=== PATIENT | female | born 1960 | race Caucasian/White ===

== ENCOUNTER 2016-10-30 10:03 | Inpatient (IN) | payer BC ==
[~2016-10-30] VITALS: Ht 154.9 cm; Wt 78.9 kg
[2016-10-30 11:29] LABS: BASOPHILS 0.3 % (0-2); EOSINOPHILS 0.8 % (0-7); HEMATOCRIT 32.7 % (36.0-48.0); HEMOGLOBIN 10.4 g/dL (12-16); IMMATURE GRANULOCYTES 0.4 % (0-5); LYMPHOCYTES 7.8 % (15-50); MCH 28.5 pg (26.0-34.0); MCHC 31.8 g/dL (31.0-37.0); MCV 89.6 fL (80.0-100.0); MEAN PLATELET VOLUME 10.8 fL (7.4-10.4); MONOCYTES 4.4 % (2-11); NEUTROPHILS 86.3 % (40-80); PLATELET COUNT 390 10x3/uL (130-400); RBC 3.65 10x6/uL (4.00-5.40); RDW 14.9 % (11.5-14.5); WBC 11.9 10x3/uL (4.8-10.8)
[2016-10-30 11:42] LABS: INR 1.14 (0.85-1.17); PROTIME 14.5 SECONDS (11.6-15.0)
[2016-10-30 11:51] LABS: ALBUMIN 1.9 g/dL (3.4-5.0); ANION GAP 13.4 mmol/L (8-16); BILIRUBIN - TOTAL 0.49 mg/dL (0.2-1.3); CALCIUM 9.3 mg/dL (8.5-10.1); CARBON DIOXIDE 25.2 mmol/L (21.0-32.0); POTASSIUM - SERUM 3.6 mmol/L (3.5-5.1); PROTEIN - SERUM 6.6 g/dL (6.4-8.2)
[2016-10-30] MEDS ORDERED: NEURONTIN800 MG PO (17:57)
[2016-10-30] MEDS ORDERED: NEURONTIN 300300 MG PO (17:58)
[2016-10-30] MEDS ORDERED: ISOSORBIDE MONO30 M1 PO (17:59)
[2016-10-30] MEDS ORDERED: ULTRAM50 MG PO (17:59)
[2016-10-30] MEDS ORDERED: CORDARONE200 MG PO (18:00)
[2016-10-30] MEDS ORDERED: COREG12.5 MG PO (18:01)
[2016-10-30] MEDS ORDERED: PREDNISONE5 MG PO (18:03)
[2016-10-30] MEDS ORDERED: ZOFRAN4 MG PO (18:05)
[2016-10-30] MEDS ORDERED: VITAMIN D250000 UNIT PO (18:05)
[2016-10-30] MEDS ORDERED: COMBIVENT RESPIM4 GM INH (18:05)
[2016-10-30 18:09] VITALS: BP 129/74; Ht 154.9 cm; Wt 78.9 kg
[2016-10-30 18:54] LABS: % SATURATION 10 % (15-55); IRON 21 ug/dl (35-150); TOTAL IRON BIND CAPACITY 191 ug/dl (260-445); UNSAT IRON BIND CAPACITY 170 ug/dl (150-375)
--- NOTE | 2016-10-30 19:10 | NUR ---
ALERT/AWAKE TALKING ON PHONE. HAS O2 ON AT 2L/NC. RR 20 EVEN U/L. TELEMETRY SHOWS 83 SR. RT ANKLE IN CAST. BSC AND CRUTCHES NEXT TO BED. REQUESTED BLANKET REMOVED FROM HER FEET. NO OTHER NEEDS VOICED.
[2016-10-30 20:00] VITALS: BP 155/84
--- NOTE | 2016-10-30 23:24 | NUR ---
RETURNED TO BED FROM BS. RT PRESENT TO GIVE UPDRAFT TX.
[2016-10-31 04:00] VITALS: BP 133/87
--- NOTE | 2016-10-31 05:00 | NUR ---
IV INFILTRATED. REMOVED AND TRIED SEVERAL TIMES TO RESITE NEW ONE. WILL SEE IF ANOTHER NURSE HAS TIME TO RESITE AN IV.
[2016-10-31 05:18] LABS: BASOPHILS 0 % (0-2); EOSINOPHILS 0 % (0-7); HEMATOCRIT 35.1 % (36.0-48.0); HEMOGLOBIN 11.2 g/dL (12-16); IMMATURE GRANULOCYTES 0.3 % (0-5); LYMPHOCYTES 5.6 % (15-50); MCH 28.6 pg (26.0-34.0); MCHC 31.9 g/dL (31.0-37.0); MCV 89.8 fL (80.0-100.0); MEAN PLATELET VOLUME 10.7 fL (7.4-10.4); NEUTROPHILS 93.1 % (40-80); PLATELET COUNT 376 10x3/uL (130-400); RBC 3.91 10x6/uL (4.00-5.40)
[2016-10-31 05:37] LABS: ALBUMIN 2.1 g/dL (3.4-5.0); BILIRUBIN - TOTAL 0.4 mg/dL (0.2-1.3); CALCIUM 9.4 mg/dL (8.5-10.1); CARBON DIOXIDE 26.1 mmol/L (21.0-32.0); CREATININE - SERUM 0.9 mg/dL (0.6-1.3); MAGNESIUM - SERUM 1.7 mg/dL (1.8-2.4); PHOSPHOROUS 4.3 mg/dL (2.5-4.9); PROTEIN - SERUM 6.4 g/dL (6.4-8.2)
--- NOTE | 2016-10-31 05:55 | NUR ---
ASSISTED TO BSC TO VOID AND BACK TO BED. ADMIN SCHED MED. NO OTHER NEEDS VOICED.
[2016-10-31 05:57] LABS: C-REACTIVE PROTEIN 30.3 mg/dL (0.0-0.9)
[2016-10-31 06:04] LABS: ANION GAP 15.2 mmol/L (8-16); POTASSIUM - SERUM 4.3 mmol/L (3.5-5.1)
--- NOTE | 2016-10-31 07:51 | NUR ---
AM ROUNDING- RECEIVED REPORT FROM DIPPER AND DRIER NURSE AURY. PT IS CURRENTLY SITTING UP IN BED RECEIVING A BREATHING TX. ON 02 AT 2L VIA NC. ON MONITOR SHOWING SR, 83 WITH PVC AND BBB. NO IV CURRENTLY PER AURY AFTER ATTEMPTING IV INSERTION X4 STICKS. WILL CALL AVELINA PORTER, VASCULAR ACCESS NURSE TO SEE ABOUT RESITED IV CATHETER. NO NEED AT CURRENT TIME. WILL CONTINUE TO MONITOR AND CONTINUE WITH PLAN OF CARE.
--- NOTE | 2016-10-31 09:13 | NUR ---
MRS. VALLE (FEED MILL SUPERVISOR) STATES SHE SITED PT WITH IV CATHETER X1 STICK WITH 22G IV CATHETER TO LEFT FOREARM.
[2016-10-31 10:02] VITALS: BP 158/61
[2016-10-31 14:42] VITALS: BP 137/67
[2016-10-31 17:48] VITALS: BP 147/76
--- NOTE | 2016-10-31 18:35 | NUR ---
PT IS CURRENTLY SITTING UP IN BED WITH EYES OPEN RESTING. PT DENIES ANY NEED AT CURRENT TIME. CALL LIGHT IS IN REACH. WILL CONTINUE TO MONITOR.
[2016-10-31 19:00] VITALS: BP 158/86
--- NOTE | 2016-10-31 20:00 | NUR ---
PT IN BED WITH HOB UP FOR COMFORT. WATCHING TV. ALERT & ORIENTED. RIGHT LEG IN CAST. 02 @ 2L VIA N/C. TELEMETRY. ELECTROLYTE PROTOCOL. UP ADLIB. NEEDS STOOL SPECIMEN COLLECTED. BED IN LOWEST POSITION AND CALL LIGHT WITHIN REACH.
--- NOTE | 2016-10-31 23:30 | NUR ---
RESTING QUIETLY. CL IN REACH.
--- NOTE | 2016-11-01 01:36 | NUR ---
CALL LIGHT IN REACH, WILL CONTINUE WITH PLAN OF CARE.
--- NOTE | 2016-11-01 02:55 | NUR ---
PT IN BED WITH HOB UP FOR COMFORT. EYES CLOSED. CHEST RISING AND FALLING. BED IN LOWEST POSITION AND CALL LIGHT WITHIN REACH.
--- NOTE | 2016-11-01 04:20 | NUR ---
PT IN BED WITH HOB UP FOR COMFORT. EYES CLOSED. RESP. EVEN. BED IN LOWEST POSITION AND CALL LIGHT WITHIN REACH.
[2016-11-01 06:12] LABS: BASOPHILS 0 % (0-2); EOSINOPHILS 0 % (0-7); HEMATOCRIT 33.1 % (36.0-48.0); HEMOGLOBIN 10.9 g/dL (12-16); IMMATURE GRANULOCYTES 0.4 % (0-5); LYMPHOCYTES 8.1 % (15-50); MCH 29.3 pg (26.0-34.0); MCHC 32.9 g/dL (31.0-37.0); MEAN PLATELET VOLUME 10.4 fL (7.4-10.4); NEUTROPHILS 89.5 % (40-80); PLATELET COUNT 386 10x3/uL (130-400); RBC 3.72 10x6/uL (4.00-5.40); RDW 15.1 % (11.5-14.5); WBC 11.7 10x3/uL (4.8-10.8)
[2016-11-01 06:24] VITALS: BP 128/86
[2016-11-01 06:24] LABS: ANION GAP 14.4 mmol/L (8-16); BILIRUBIN - TOTAL 0.3 mg/dL (0.2-1.3); CALCIUM 9.7 mg/dL (8.5-10.1); CARBON DIOXIDE 26.9 mmol/L (21.0-32.0); POTASSIUM - SERUM 4.3 mmol/L (3.5-5.1); PROTEIN - SERUM 6.9 g/dL (6.4-8.2)
--- NOTE | 2016-11-01 07:49 | NUR ---
AM ROUNDING- RECEIVED REPORT FROM DISPENSARY ATTENDANT NURSE LIONEL. PT IS CURRENTLY SITTING UP IN BED RECEIVED BREATHING TX. STATES SHE IS HAVING 4/10 THROAT PAIN. ON 02 AT 2L VIA NC. ON MONITOR SHOWING SR, HR 74. IV SEEN TO LEFT FOREARM WITH NS RUNNING AT 50CC. NO NEED AT CURRENT TIME. WILL CONTINUE TO MONITOR AND CONTINUE WITH PLAN OF CARE.
[2016-11-01 08:00] VITALS: BP 105/70
[2016-11-01 09:15] LABS: FOLATE (FOLIC ACID) - SERUM 11.9 ng/mL (>3.0)
[2016-11-01 16:00] VITALS: BP 148/89
--- NOTE | 2016-11-01 16:47 | NUR ---
CARMITA FLOWERS CAME TO INFORM ME THAT PTS IV IS INFILTRATED. MARY JONES REMOVED IV WITH CATH TIP INTACT. WILL ATTEMPT TO RESITE PT.
--- NOTE | 2016-11-01 18:45 | NUR ---
PT IS SITTING UP IN BED WITH EYES OPEN RESTING. BROUGHT PT CUP OF ICE WATER REQUESTED. NO OTHER NEED AT CURRENT TIME. WILL CONTINUE TO MONITOR.
[2016-11-01 19:00] VITALS: BP 167/82
[2016-11-02] VITALS: BP 170/106
--- NOTE | 2016-11-02 01:22 | NUR ---
REST QUIETLY IN BED, EYE CLOSE, BED LOW, CALL LIGHT WITHIN REACH.
[2016-11-02 04:00] VITALS: BP 171/94
[2016-11-02 06:14] LABS: BASOPHILS 0 % (0-2); EOSINOPHILS 0 % (0-7); HEMATOCRIT 33.7 % (36.0-48.0); IMMATURE GRANULOCYTES 0.5 % (0-5); LYMPHOCYTES 4.4 % (15-50); MCH 29.1 pg (26.0-34.0); MCHC 32.6 g/dL (31.0-37.0); MCV 89.2 fL (80.0-100.0); MEAN PLATELET VOLUME 10.6 fL (7.4-10.4); MONOCYTES 2.1 % (2-11); PLATELET COUNT 355 10x3/uL (130-400); RBC 3.78 10x6/uL (4.00-5.40); RDW 15.2 % (11.5-14.5)
[2016-11-02 06:24] LABS: WBC 15.3 10x3/uL (4.8-10.8)
[2016-11-02 06:45] LABS: ALBUMIN 2.1 g/dL (3.4-5.0); ANION GAP 15.9 mmol/L (8-16); BILIRUBIN - TOTAL 0.25 mg/dL (0.2-1.3); CALCIUM 9.4 mg/dL (8.5-10.1); CARBON DIOXIDE 24.7 mmol/L (21.0-32.0); CREATININE - SERUM 1.1 mg/dL (0.6-1.3); POTASSIUM - SERUM 4.6 mmol/L (3.5-5.1); PROTEIN - SERUM 6.2 g/dL (6.4-8.2)
--- NOTE | 2016-11-02 07:43 | NUR ---
AM ROUNDS - PT IS IN BED AND AWAKE. IV TO LEFT AC, NS AT 50CC/HR. O2 AT 2L VIA NC. MONITOR SHOWING SB, HR 57. PT HAS A NON PRODUCTIVE COUGH. BED AT LOWEST POSITION. CALL HERNANDEZ IN REACH/USE. SIDE RAILS UP X2. NO FUTHER NEEDS AT THIS TIME. WILL CONTINUE TO MONITOR.
[2016-11-02 08:00] VITALS: BP 160/81
[2016-11-02 12:00] VITALS: BP 146/78
--- NOTE | 2016-11-02 13:52 | NUR ---
Nutrition follow-up: Diet: low sodium PO intake ~75% average of meals Labs reviewed Wt: 168# RDN following.
[2016-11-02 16:00] VITALS: BP 156/94
--- NOTE | 2016-11-02 19:55 | NUR ---
ASSESSMENT COMPELTE, A&O. RESPERAIONS EVEN. CURRENTLY RECIEVING UPDRAFT. IV TO LEFT AC WITH NS INFUSING AT 50. SITE CLEAN AND DRY. RIGHT LEG IN CAST, CRUTHCES AT BED SIDE, WHEN ASKED PT STATED THAT SHE DOES NOT NEED ASSISTANCE WHEN GETTING UP, STATED THAT SHE HAS BEEN ON THE CRUTCHES SINCE MARCH. PT DENIES PAIN OR OTHER NEEDS, BED LOW, CL IN REACH.
[2016-11-02 20:00] VITALS: BP 177/103
[2016-11-03] VITALS: BP 167/95
[2016-11-03 04:00] VITALS: BP 152/87
--- NOTE | 2016-11-03 05:19 | NUR ---
IV TO LEFT AC OUT, TIP INTACT. IV RESITED BY Brice DIGGS RN TO RIGHT WRIST, 22 GUAGE, FIRST ATTEMPT. PT TOLERATED WELL. IV FLUIDS CONTINUED.
[2016-11-03 06:36] LABS: BASOPHILS 0 % (0-2); EOSINOPHILS 0 % (0-7); HEMATOCRIT 34.7 % (36.0-48.0); IMMATURE GRANULOCYTES 0.5 % (0-5); LYMPHOCYTES 4.3 % (15-50); MCH 28.6 pg (26.0-34.0); MCHC 31.7 g/dL (31.0-37.0); MCV 90.1 fL (80.0-100.0); MONOCYTES 2.1 % (2-11); NEUTROPHILS 93.1 % (40-80); PLATELET COUNT 361 10x3/uL (130-400); RBC 3.85 10x6/uL (4.00-5.40); RDW 15.5 % (11.5-14.5)
[2016-11-03] MEDS ORDERED: CATAPRES0.1 MG PO (06:40)
[2016-11-03 06:53] LABS: ALBUMIN 2.2 g/dL (3.4-5.0); BILIRUBIN - TOTAL 0.29 mg/dL (0.2-1.3); CALCIUM 9.6 mg/dL (8.5-10.1); CREATININE - SERUM 1.1 mg/dL (0.6-1.3); PROTEIN - SERUM 6.7 g/dL (6.4-8.2)
[2016-11-03 08:22] VITALS: BP 176/96
--- NOTE | 2016-11-03 08:30 | NUR ---
INTRODUCED MYSELF TO PT PRIMARY RN FOR TODAYS SHIFT. PT A&O SITTING UP IN BED RESTING QUIETLY. SHIFT ASSESSMENT COMPLETED. PT IS HOPING TO BE DISCHARGED OVER THIS WEEKEND AND STATES SHE IS FEELING MUCH BETTER. PROVIDED PT WITH MORNING MEDICATIONS AND PT SWALLOWED WITHOUT ANY DIFFICULTIES. INITIATED IVPB ANBX INFUSING VIA R.HAND PIV WITH DRSG CDI AND SWAB CAPS IN USE. PT HAS A CAST ON HER R.LEG PRIOR TO ADMISSION BUT NO ISSUES NOTED WITH CAST OR SITE. PT REFUSES SCDS AND AMBULATES WITH CRUTCHES WITHOUT ASSISTANCE. PT DENIES ANY CURRENT PAIN OR NEEDS. CL IN REACH, BED IN LOWEST, SIDE RAILS X2. WILL CPOC.
[2016-11-03 16:40] VITALS: BP 171/93
[2016-11-03 19:00] VITALS: BP 149/71
--- NOTE | 2016-11-03 19:16 | NUR ---
PT STATES SHE HAD A GOOD DAY OVERALL AND DENIES ANY CURRENT PAIN OR NEEDS. PT HOPES TO BE DISCHARGED TOMORROW OR SATURDAY. RR NONLABORED WITH NC @2L, TAPERED PT DOWN TO 1L AND PTS SAT IS 97% PT STATES SHE WOULD LIKE TO REST AND DENIES ANY CURRENT NEEDS. CL IN REACH, BED IN LOWEST, SIDE RAILS X2. WILL CPOC.
--- NOTE | 2016-11-03 19:34 | NUR ---
INITIAL ROUNDS COMPETED. PT RESTING WITH EYES CLOSED. RESP EVEN AND REGULAR. SR UP X2, CALL LIGHT WITHIN REACH.
--- NOTE | 2016-11-04 00:51 | NUR ---
PT RESTING WITH EYES CLOSED. RESP EVEN AND REGULAR. SR UP X2, CALL LIGHT WITHIN REACH.
[2016-11-04 02:18] VITALS: BP 139/91
--- NOTE | 2016-11-04 02:41 | NUR ---
PT RESTING WITH EYES CLOSED. RESP EVEN AND REGULAR. SB PER CM HR 53. WILL CONTINUE TO MONITOR. SR UP X2, CALL LIGHT WITHIN REACH.
[2016-11-04 05:00] VITALS: BP 181/94
[2016-11-04 05:10] LABS: BASOPHILS 0 % (0-2); EOSINOPHILS 0 % (0-7); HEMOGLOBIN 10.7 g/dL (12-16); IMMATURE GRANULOCYTES 0.3 % (0-5); LYMPHOCYTES 3.9 % (15-50); MCH 28.2 pg (26.0-34.0); MCHC 31.5 g/dL (31.0-37.0); MCV 89.7 fL (80.0-100.0); MEAN PLATELET VOLUME 10.5 fL (7.4-10.4); MONOCYTES 2.3 % (2-11); NEUTROPHILS 93.5 % (40-80); PLATELET COUNT 300 10x3/uL (130-400); RBC 3.79 10x6/uL (4.00-5.40); RDW 15.1 % (11.5-14.5); WBC 10.7 10x3/uL (4.8-10.8)
[2016-11-04 05:30] LABS: ALBUMIN 2.2 g/dL (3.4-5.0); BILIRUBIN - TOTAL 0.32 mg/dL (0.2-1.3); CALCIUM 9.6 mg/dL (8.5-10.1); CARBON DIOXIDE 28.5 mmol/L (21.0-32.0); CREATININE - SERUM 1.1 mg/dL (0.6-1.3); MAGNESIUM - SERUM 2.4 mg/dL (1.8-2.4); PHOSPHOROUS 3.5 mg/dL (2.5-4.9); POTASSIUM - SERUM 4.5 mmol/L (3.5-5.1); PROTEIN - SERUM 6.2 g/dL (6.4-8.2)
--- NOTE | 2016-11-04 06:49 | NUR ---
VSS THROUGHOUT NIGHT. SB PER CM HR IN 50'S. NEEDS MET; WILL CONTINUE TO MONITOR.
--- NOTE | 2016-11-04 08:02 | NUR ---
ASSESSMENT DONE. DENIES NEEDS
[2016-11-04 08:16] VITALS: BP 171/91
--- NOTE | 2016-11-04 09:27 | NUR ---
REPOSITIONED IN BED FOR COMFORT. CALL LIGHT IN REACH. WILL CONT. PLAN OF CARE.
[2016-11-04 11:59] VITALS: BP 142/73
[2016-11-04 16:05] VITALS: BP 152/80
--- NOTE | 2016-11-04 16:59 | NUR ---
WITHOUT CHANGES OR DISTRESS NOTED AT THIS TIME. DENIES NEEDS,.
[2016-11-04 19:00] VITALS: BP 114/63
--- NOTE | 2016-11-04 20:30 | NUR ---
INITIAL ROUNDS COMPELTED AT 1910 HRS. PT DENIED ANY DISCOMFORT. ASSESSMENT COMPETED AT 1930 HRS. VSS. SB PER CM HR 57. IV TO R WRIST WITH NS AT 50CC/HR. IV PATENT. LUNGS DIMINISHED IN L LOWER LOBES, SCATTERED CRACKLES AND RHONCHI R LOWER LOBE. R LOWER LEG IN CAST. R FOOT WARM WITH STRONG PEDAL PULSE. BRISK CAP REFILL. O2 1LNC. WILL CONTINUE TO MONITOR. SR UP X2 CALL LIGHT WITHIN REACH.
--- NOTE | 2016-11-04 22:00 | NUR ---
PM MEDS GIVEN. PT CURRENTLY WATCHING TV. WILL CONTINUE TO MONITOR.
--- NOTE | 2016-11-05 00:22 | NUR ---
PT AWAKE; DENIES ANY DISCOMFORT. O2 SAT 97% ON 1LNC. WILL CONTINUE TO MONITOR.
[2016-11-05 04:00] VITALS: BP 172/97
--- NOTE | 2016-11-05 04:32 | NUR ---
IV SALINE LOCKED. PT RESTING WITH EYES CLOSED. RESP EVEN AND REGULAR. SR UP X2, CALL LIGHT WITHIN REACH.
--- NOTE | 2016-11-05 06:21 | NUR ---
VSS THROUGHOUT NIGHT. SR/AB PER CM. PT STATED ULTRAM HELPED FOOT PAIN. NEEDS MET;WILL CONTINUE TO MONITOR.
[2016-11-05 08:00] VITALS: BP 131/86
--- NOTE | 2016-11-05 08:02 | NUR ---
ASSESSMENT COMPLETED. TELEMERTY SHOWS SB WITH A HEART RATE OF 54. RIGHT WRIST SL. LEFT LUNG DIMISHED AND RIGHT LUNG WITH CRACKLES. PT HAS A RIGHT ANKLE CAST. DENIES ANY NEEDS AT PRESENT TIME.
--- NOTE | 2016-11-05 10:45 | NUR ---
RESTING QUIETLY NAD NOTED
[2016-11-05 12:00] VITALS: BP 151/72
--- NOTE | 2016-11-05 12:54 | NUR ---
UP TO BATHROOM PER SELF. DENIES ANY NEEDS. SR UP WITH CALL LIGHT IN REACH
[2016-11-05 16:43] VITALS: BP 140/64
[2016-11-05 19:36] VITALS: BP 136/69
--- NOTE | 2016-11-05 20:34 | NUR ---
RESTING WITH NO DISTRESS. SEE SHIFT ASSESSMENT. CPOC.
--- NOTE | 2016-11-05 22:35 | NUR ---
HS MEDS GIVEN. PT AWAKE/ALERT AND VOICING NO NEEDS. IVPB ABT STARTED.
[2016-11-06] VITALS (7 sets, daily range): BP systolic 69–175; BP diastolic 69–95
[2016-11-06 06:58] LABS: BASOPHILS 0 % (0-2); EOSINOPHILS 0 % (0-7); HEMATOCRIT 35.9 % (36.0-48.0); HEMOGLOBIN 11.4 g/dL (12-16); IMMATURE GRANULOCYTES 0.2 % (0-5); LYMPHOCYTES 2.7 % (15-50); MCH 28.2 pg (26.0-34.0); MCHC 31.8 g/dL (31.0-37.0); MCV 88.9 fL (80.0-100.0); MEAN PLATELET VOLUME 11.1 fL (7.4-10.4); MONOCYTES 3.1 % (2-11); PLATELET COUNT 325 10x3/uL (130-400); RBC 4.04 10x6/uL (4.00-5.40); RDW 15.5 % (11.5-14.5); WBC 12.5 10x3/uL (4.8-10.8)
--- NOTE | 2016-11-06 07:10 | NUR ---
RECEIVED REPORT. ASSUMED CARE OF PATIENT. PATIENT SITTING IN BED. RESP EVEN AND UNLABORED. DENIES NEEDS AT THIS TIME. CALL LIGHT WITHIN REACH. NO DISTRESS. CAST TO RIGHT LEG. DENIES NUMBNESS OR TINGLING TO FOOT TOES. NO DISTRESS.
[2016-11-06 07:31] LABS: ANION GAP 8.8 mmol/L (8-16); CALCIUM 9.4 mg/dL (8.5-10.1); CARBON DIOXIDE 30.3 mmol/L (21.0-32.0); CREATININE - SERUM 0.9 mg/dL (0.6-1.3); POTASSIUM - SERUM 4.1 mmol/L (3.5-5.1)
--- NOTE | 2016-11-06 09:08 | NUR ---
PT OFF UNIT IN XRAY AT THIS TIME. LEFT UNIT VIA WHEELCHAIR.
--- NOTE | 2016-11-06 09:16 | NUR ---
RETURNED TO ROOM VIA WHEELCHAIR FROM XRAY. NO DISTRESS.
--- NOTE | 2016-11-06 12:30 | NUR ---
PATIENT SITTING IN BED WITH ATTENTION TOWARD TELEVISION. CALL LIGHT WITHIN REACH. SPOKE WITH NURSE PRACTITIONER IN REGRADS TO PATIENT BP ELEVATED AT 168/94 AND NO PRN TO ADMINISTER. INFORMED THAT SOTALOL HELD DUE TO HEARTRATE 52 AND DIPPING TO THE 40'S THIS AM. RECORDS MANAGEMENT DIRECTOR WILL REVIEW CHART.
--- NOTE | 2016-11-06 15:25 | NUR ---
PATIENT SITTING UP IN BED. DENIES NEEDS. NO DISTRESS. CALL LIGHT WITHIN REACH.
--- NOTE | 2016-11-06 16:59 | NUR ---
Patient Name: DONTAE HARRIS Admission Status: ER Accout number: [id number] Admission Date: 10-30-2016 : 1960 Admission Diagnosis:SHORTNESS OF BREATH Attending: CLAIR Current LOS: 7 Anticipated DC Date: Planned Disposition: Home Primary Insurance: Q.branch O Discharge Planning Comments: * Is the patient Alert and Oriented? Yes 0 * How many steps to enter\exit or inside your home? 2 0 * PCP DR. PARAMJIT SALGADO, [place] 0 * Pharmacy [facility] ANY IN [place] 0 * Preadmission Environment Home with Family 0 * ADLs Independent 0 * Equipment Crutch 0 * Other Equipment NO MEDICAL EQUIPMENT PROVIDER PREFERENCE 0 * List name and contact numbers for known caregivers / representatives who currently or will assist patient after discharge: DESTINEE HARRIS, SON, 0 * Community resources currently utilized None 0 * Please name any agencies selected above. NONE 0 * Additional services required to return to the preadmission environment? No 0 * Can the patient safely return to the preadmission environment? Yes 0 * Has this patient been hospitalized within the prior 30 days at any hospital? Yes 0 CM MET WITH PT IN ROOM TO DISCUSS DISCHARGE PLANNING AND NEEDS. PT REPORTS LIVING AT HOME INDEPENDENTLY WITH HER ADULT SISTER. PT HAS CRUTCHES THAT SHE IS USING FROM HER ANKLE REPLACEMENT SURGERY; PT WAS SUPPOSED TO GET THE CAST OFF TOMORROW. PT HAS NO MEDICAL EQUIPMENT AND NO OUTSIDE SERVICES ASSISTING IN THE HOME. CM DISCUSSED AVAILABILITY OF HOME HEALTH, REHAB SERVICES AND MEDICAL EQUIPMENT. PT DENIES DISCHARGE NEEDS EXCEPT THAT SHE MAY NEED OXYGEN AND IF SO, WILL PAY FOR A PORTABLE OXYGEN CONCENTRATOR IF HER INSURANCE DOES NOT; PT REPORTS HER SISTER WILL PICK HER UP FOR DISCHARGE HOME. CM TO FOLLOW AND ASSIST IF NEEDED. Want Ad Supervisor: Paramjit Adams
--- NOTE | 2016-11-06 19:30 | NUR ---
ASSESSMENT COMPLETE. S1S2. SINUS BRADYCARDIA SHOWING ON MONITOR. CAST TO RIGHT LOWER EXTREMITY. RADIAL PULSES +2; LEFT PEDAL PULSE PALPATED. GENERALIZED EDEMA TO LOWER EXTREMITIES. NO HOT SPOTS ON CAST; TOES PINK TO CASTED EXTREMITY. ABLE TO MOVE WITH LITTLE PAIN. USES CRUTCHES TO AMBULATE. RR SHALLOW; SOB WITH EXERTION; DIMINISHED BILATERALLY THROUGHOUT ALL LOBES. SLIGHT WHEEZE NOTED TO UPPER LOBES BILATERALLY. FALL RISK 5. BED IN LOWEST POSITION, CALL LIGHT IN REACH, ROOM CLEAR OF MESS. USES OXYGEN OFF AND ON. 2L VIA NC WHEN IN USE.
--- NOTE | 2016-11-06 21:32 | NUR ---
ATTEMPTED TO COLLECT STOOL SAMPLE. PT MISSED THE HAT THAT WAS PLACED IN COMMODE. WILL ATTEMPT TO COLLECT AT NEXT BOWEL MOVEMENT.
--- NOTE | 2016-11-06 23:17 | NUR ---
SLIGHT SWELLING AND REDNESS TO RIGHT FOREARM PIV. CHECKED PATENTCY; FLUSHED AND DENIES PAIN. WILL CONTINUE TO MONITOR. PT STATES BUMPED IV SITE WHILE IN RESTROOM.
[2016-11-07 01:00] VITALS: BP 152/77
[2016-11-07 04:21] VITALS: BP 159/83
--- NOTE | 2016-11-07 05:53 | NUR ---
PT TOOK MEDS WITHOUT DIFFICULTY. NO DISTRESS NOTED. DENIES NEEDS AT THIS TIME.
[2016-11-07 06:50] LABS: BASOPHILS 0.1 % (0-2); EOSINOPHILS 0 % (0-7); HEMATOCRIT 38.1 % (36.0-48.0); HEMOGLOBIN 12.1 g/dL (12-16); IMMATURE GRANULOCYTES 0.3 % (0-5); LYMPHOCYTES 2.4 % (15-50); MCH 28.2 pg (26.0-34.0); MCHC 31.8 g/dL (31.0-37.0); MCV 88.8 fL (80.0-100.0); MEAN PLATELET VOLUME 11.1 fL (7.4-10.4); MONOCYTES 2.6 % (2-11); NEUTROPHILS 94.6 % (40-80); PLATELET COUNT 376 10x3/uL (130-400); RBC 4.29 10x6/uL (4.00-5.40); RDW 15.9 % (11.5-14.5); WBC 14.8 10x3/uL (4.8-10.8)
--- NOTE | 2016-11-07 06:51 | NUR ---
ORAL CARE PROVIDED. DENTURE CARE PROVIDED.
[2016-11-07 07:04] LABS: ANION GAP 10.2 mmol/L (8-16); CALCIUM 9.5 mg/dL (8.5-10.1); CARBON DIOXIDE 30.8 mmol/L (21.0-32.0)
[2016-11-07 08:00] VITALS: BP 172/90
--- NOTE | 2016-11-07 08:25 | NUR ---
RESP UL ON . CALL LIGHT IN REACH. WILL MONITOR NEEDS.
--- NOTE | 2016-11-07 12:04 | NUR ---
PT RESTING IN BED WITH EYES OPEN CALL LIGHT IN REACH WILL MONITER
[2016-11-07 12:43] VITALS: BP 172/75
--- NOTE | 2016-11-07 13:54 | EC ---
PATIENT:DONTAE HARRIS DATE OF SERVICE: 10/31/16 SEX: F MEDICAL RECORD: [id number] DATE OF : 56 LOCATION:D. D.213 AGE OF PATIENT: 56 ADMISSION DATE: 10/30/16 REFERRING PHYSICIAN: INTERPRETING PHYSICIAN: ROMÁN JOHNSON MD ECHOCARDIOGRAM REPORT ECHO CHARGES 4 ECHO COMPLETE CLINICAL DIAGNOSIS: CHF ECHOCARDIOGRAPHIC MEASUREMENTS (adult normal given) AC root (d.<3.7cm) 2.9 cm LV Septum d (<1.2 cm> 1.4 cm Valve Excursion 2.0 cm LV Septum (systole) 1.8 cm Left Atria (s.<4.0cm> 4.2 cm LVPW d(<1.2cm) 1.4 cm RV (d.<2.3cm) 2.7 cm LVPW (sytole) 1.7 cm LV diastole(<5.6CM) 5.3 cm MV E-F(>70mm/sec) cm LV systole 4.0 cm LVOT Diameter 1.7 cm MV exc.(>10mm) cm Est.ejection fraction (50-75%) % Pericardial Effusion N DOPPLER: LVIT cm/sec A 110 cm/sec E 149 cm/sec LA cm/sec RVSP 43.0 mmHg LVOT 91.0 cm/sec AOP1/2T m/s Asc. Ao 132 cm/sec RVOT 52.0 cm/sec RA cm/sec PA 95.0 cm/sec AV Gradient Peak 7.0 mmHg AV Mean 3.3 mmHg AV Area 1.4 cm MV Gradient Peak 9.4 mmHg MV Mean 2.9 mmHg MV Area cm COMMENTS: Customs And Border Protection Inspector: 1 WHIT HIWASSEE Colored Leather Setter: 3 Dr. Wagner TAPE# PACS TWO-DIMENSIONAL ECHOCARDIOGRAM WITH DOPPLER 1. Left ventricular chamber size is within normal limits. Left ventricular systolic function is markedly to severely reduced. Overall ejection fraction is 30 percent. There is global hypokinesis throughout all segments with no discrete wall motion abnormalities present. 2. Left atrium is enlarged at 4.2 centimeters. Right atrium and right ventricular chamber sizes are within normal limits. 3. Valvular structures have normal structure and motion. 4. Doppler interrogation reveals moderate mitral regurgitation, moderate tricuspid ECHOCARDIOGRAM REPORT [id number] DONTAE HARRIS regurgitation; no other valvular insufficiency or stenosis. Pulmonary artery systolic pressure is mildly elevated estimated at 43 millimeters of mercury. 5. No evidence of pericardial effusion or left ventricular thrombus. ROMÁN JOHNSON MD at 1354 CC: [id number] DICTATION DATE: 10/31/16 1500 SENIOR SQL DEVELOPER: RICARDO 11/01/16 1352 ADM IN [facility] [address] [place] [place] [id number]
[2016-11-07 16:00] VITALS: BP 146/71
--- NOTE | 2016-11-07 19:58 | NUR ---
PT SITTING UP ON SIDE OF BED, STATED GOING TO RESTROOM, ADAMANT ABOUT DOING IT HERSELF, RT LEG IS IN CAST, NBO SIGNS OF DISTRESS, BED IN LOW POSITION, CALL LIGHT IN REACH CONTINUE W/ PLAN OF CARE
[2016-11-07 20:00] VITALS: BP 178/77
--- NOTE | 2016-11-07 23:15 | NUR ---
PT IN BED IN HIGH FOWLERS POSITION, EYES ARE CLOSED, EVEN RISE AND FALL OF CHEST, PT OPENED EYES WHEN I CALLED HER NAME, VOICED NO NEEDS AT THE MOMENT. CONTINUE WITH CARE PLAN
[2016-11-08 04:20] VITALS: BP 182/81
[2016-11-08 06:05] LABS: BASOPHILS 0 % (0-2); EOSINOPHILS 0 % (0-7); HEMATOCRIT 38.7 % (36.0-48.0); HEMOGLOBIN 12.2 g/dL (12-16); IMMATURE GRANULOCYTES 0.3 % (0-5); LYMPHOCYTES 3.5 % (15-50); MCH 27.9 pg (26.0-34.0); MCHC 31.5 g/dL (31.0-37.0); MCV 88.4 fL (80.0-100.0); MEAN PLATELET VOLUME 11.7 fL (7.4-10.4); MONOCYTES 5.6 % (2-11); NEUTROPHILS 90.6 % (40-80); PLATELET COUNT 345 10x3/uL (130-400); RBC 4.38 10x6/uL (4.00-5.40)
[2016-11-08 06:18] LABS: WBC 10.4 10x3/uL (4.8-10.8)
[2016-11-08 06:28] LABS: ANION GAP 10.5 mmol/L (8-16); CALCIUM 9.1 mg/dL (8.5-10.1); CARBON DIOXIDE 31.7 mmol/L (21.0-32.0); CREATININE - SERUM 0.9 mg/dL (0.6-1.3); POTASSIUM - SERUM 4.2 mmol/L (3.5-5.1)
[2016-11-08 08:00] VITALS: BP 192/77
--- NOTE | 2016-11-08 08:44 | NUR ---
AM MEDS GIVEN AT THIS TIME. PT IN BED, DENIES ANY NEEDS AT THIS TIME. CALL LIGHT IN REACH, NAD NOTED, WILL CONTINUE TO MONITOR.
[2016-11-08 12:30] VITALS: BP 159/80
--- NOTE | 2016-11-08 14:07 | NUR ---
Nutrition Follow Up: Pt is eating 75% meal avg on an AHA diet. Wt gain since admit noted. +BM 11/06/16. Labs reviewed. Meds noted including Solu-Medrol, Lasix. Rec continue current diet. RD following.
[2016-11-08] MEDS ORDERED: BETAPACE 80 MG80 MG PO (14:28)
[2016-11-08] MEDS ORDERED: BENZONATATE200 MG PO (14:29)
[2016-11-08] MEDS ORDERED: MUCINEX DM ER1 EAC1 PO (14:29)
[2016-11-08] MEDS ORDERED: SINGULAIR10 MG PO (14:29)
[2016-11-08] MEDS ORDERED: ADVAIR 500/501 DISK INH (14:30)
[2016-11-08] MEDS ORDERED: PREDNISONE10 MG PO (14:32)
[2016-11-08 15:38] VITALS: BP 143/64
--- NOTE | 2016-11-08 17:18 | NUR ---
1635- PROVIDED VERBAL AND WRITTEN DISHCARGE INSTRUCTIONS TO PT. PT VERBALIZED UNDERSTANDING REGARIDN DISHCARGE TEACHING. D/C RT FA IV, TIP INTACT. PT DENIES ANY NEEDS AT THIS TIME. WILL NOTIFY WHEN RIDE IS HERE. 171- PT LEFT UNIT VIA WHEELCHAIR, ACCOMPANIED BY FAMILY. NAD NOTED.
== END 2016-11-08 17:22 | disposition home or self-care (01) | DRG 291 ==
LOC: D.ER 10:03 → D.M2 13:46
PROVIDERS: Emergency Medicine; Internal Medicine Pulmonary Disease; ADMIT Family Medicine
DX: I11.0 Hypertensive heart disease with heart failure (principal); J96.01 Acute respiratory failure with hypoxia; J18.9 Pneumonia, unspecified organism; J44.0 Chronic obstructive pulmonary disease with (acute) lower respiratory infection; M05.10 Rheumatoid lung disease with rheumatoid arthritis of unspecified site; D50.9 Iron deficiency anemia, unspecified; I50.21 Acute systolic (congestive) heart failure; I25.10 Atherosclerotic heart disease of native coronary artery without angina pectoris; I48.91 Unspecified atrial fibrillation; T65.891A Toxic effect of other specified substances, accidental (unintentional), initial encounter; T46.2X1A Poisoning by other antidysrhythmic drugs, accidental (unintentional), initial encounter; I08.1 Rheumatic disorders of both mitral and tricuspid valves; K21.9 Gastro-esophageal reflux disease without esophagitis; Z95.1 Presence of aortocoronary bypass graft; Z87.891 Personal history of nicotine dependence

== ENCOUNTER 2017-02-09 11:26 | Emergency (ER) | payer BC ==
[2016-10-30 18:09] VITALS: BMI 32.0
[~2017-02-09 11:26] MED LIST: ADVAIR 500/501 DISK INH; BENZONATATE200 MG PO; BETAPACE 80 MG80 MG PO; CATAPRES0.1 MG PO; COMBIVENT RESPIM4 GM INH; CORDARONE200 MG PO; COREG12.5 MG PO; ISOSORBIDE MONO30 M1 PO; MUCINEX DM ER1 EAC1 PO; NEURONTIN 300300 MG PO; NEURONTIN800 MG PO; PREDNISONE10 MG PO; PREDNISONE5 MG PO; SINGULAIR10 MG PO; ULTRAM50 MG PO; VITAMIN D250000 UNIT PO; ZOFRAN4 MG PO
[2017-02-09 12:06] LABS: BASOPHILS 0.3 % (0-2); EOSINOPHILS 1.7 % (0-7); HEMOGLOBIN 10.7 g/dL (12-16); IMMATURE GRANULOCYTES 0.2 % (0-5); LYMPHOCYTES 24.8 % (15-50); MCH 26.2 pg (26.0-34.0); MCHC 31.5 g/dL (31.0-37.0); MCV 83.3 fL (80.0-100.0); MEAN PLATELET VOLUME 9.7 fL (7.4-10.4); MONOCYTES 6.1 % (2-11); NEUTROPHILS 66.9 % (40-80); RBC 4.08 10x6/uL (4.00-5.40); RDW 17.3 % (11.5-14.5); WBC 9.7 10x3/uL (4.8-10.8)
[2017-02-09 12:08] LABS: PLATELET COUNT 438 10x3/uL (130-400)
[2017-02-09 12:22] LABS: ALBUMIN 2.2 g/dL (3.4-5.0); ALKALINE PHOSPHATASE 89 U/L (46-116); ALT (SGPT) 8 U/L (10-68); BILIRUBIN - TOTAL 0.31 mg/dL (0.2-1.3); CALC OSMOLALITY 277 mosm/kg (275-300); CALCIUM 9.6 mg/dL (8.5-10.1); CARBON DIOXIDE 26.2 mmol/L (21.0-32.0); CHLORIDE - SERUM 105 mmol/L (98-107); CREATININE - SERUM 0.8 mg/dL (0.6-1.3); GLUCOSE 117 mg/dL (74-106); POTASSIUM - SERUM 3.8 mmol/L (3.5-5.1); PROTEIN - SERUM 6.6 g/dL (6.4-8.2); SODIUM 139 mmol/L (136-145); UREA NITROGEN 9 mg/dL (7-18); eGFR NON AFRICAN AMERICAN 78 mL/min (90-120)
[2017-02-09 12:37] LABS: APPEARANCE HAZY (CLEAR); COLOR YELLOW (YELLOW)
[2017-02-09 12:38] LABS: BILIRUBIN NEGATIVE (NEGATIVE); GLUCOSE NEGATIVE (NEGATIVE); KETONE NEGATIVE (NEGATIVE); NITRITE POSITIVE (NEGATIVE); PH 5.5 (5.0-6.0); PROTEIN TRACE mg/dL (NEGATIVE); UROBILINOGEN NORMAL (NORMAL)
[2017-02-09 12:41] LABS: BACTERIA MANY /hpf (NONE SEEN); EPITHELIAL CELLS 0-5 /hpf (0-5); RED CELLS - URINE OCC /hpf (0-5)
== END 2017-02-09 15:30 | disposition home or self-care (01) ==
LOC: D.ER 11:26
PROVIDERS: Emergency Medicine
DX: N39.0 Urinary tract infection, site not specified (principal); R06.02 Shortness of breath; Z87.09 Personal history of other diseases of the respiratory system; I10 Essential (primary) hypertension

== ENCOUNTER 2017-08-09 11:13 | Inpatient (IN) | payer BC ==
[~2017-08-09] VITALS: Ht 154.9 cm; Wt 62.8 kg
--- NOTE | ~2017-08-09 | HP ---
PATIENT: DONTAE HARRIS MEDICAL RECORD: [id number] ACCOUNT: [id number] LOCATION:[address] : [birth year] ADMISSION DATE: 08/09/17 HISTORY AND PHYSICAL EXAMINATION DATE OF ADMISSION: 08/09/2017. CHIEF COMPLAINT: Increased swelling, shortness of breath. HISTORY OF PRESENT ILLNESS: This is a 56-year-old white female with history of heart disease, rheumatoid arthritis, congestive heart failure, atrial fibrillation who has been having worsening lower extremity edema for the last 2-3 weeks. Her Lasix was increased earlier this month. She has had basically no response to this at all. She is admitted for further workup. PAST MEDICAL HISTORY: Coronary artery disease, history of non-ST elevated WI, atrial fibrillation, COPD, hypertension, rheumatoid arthritis, carotid stenosis. She recently suffered left ulnar fracture. PAST SURGICAL HISTORY: Cardiac ablation, coronary artery bypass graft, left total knee arthroplasty, ankle surgery, total hysterectomy, cholecystectomy, . HABITS: Former smoker, quit years ago. No alcohol or drugs. HOME MEDICATIONS: Carvedilol 25 mg twice a day, prednisone 5 mg once a day, Plaquenil 200 mg daily, aspirin 81 mg a day, gabapentin 300 mg 3 times a day, Lasix 40 mg in the morning and 20 mg in the evening. ALLERGIES: CODEINE, LYRICA, PERCOCET, CYMBALTA, LEVAQUIN. FAMILY HISTORY: Father is alive with history of heart disease and hypertension. Mother is alive with history of heart disease and hypertension. REVIEW OF SYSTEMS: GENERAL: No major weight changes. HEENT: No particular sinus or allergy problems. RESPIRATORY: She has history of COPD. CARDIAC: As above with coronary artery disease and history of atrial fibrillation, followed by Dr. Sampson. GASTROINTESTINAL: Has no significant trouble with constipation, diarrhea, reflux. GENITOURINARY: No significant problems there. MUSCULOSKELETAL: Has rheumatoid arthritis. NEUROLOGIC: No seizures or migraines. PSYCHIATRIC: Denies depression. PHYSICAL EXAMINATION: VITAL SIGNS: Temperature 97.5, pulse 56, respirations 16, blood pressure 133/58, O2 sat 99. GENERAL: She is awake and alert and does not appear in distress. HEENT: Grossly within normal limits. NECK: Supple. No JVD or bruit. HEART: Regular rate and rhythm. LUNGS: Decreased breath sounds in the bases. HISTORY AND PHYSICAL [id number] DONTAE HARRIS ABDOMEN: Soft, flat, nontender. EXTREMITIES: A 2-3+ edema bilaterally. LABORATORY DATA: CBC showed a white count of 6500, hemoglobin 10.5, hematocrit 35.7 with MCV of 70. D-dimer is elevated at 3.09. Basic metabolic panel was okay except BUN a little elevated at 28, creatinine is 1.3. Total bilirubin is 1.48. Albumin 2.7. The rest of liver enzymes are okay. ProBNP 46,000. Chest x-ray showed borderline cardiomegaly. ASSESSMENT: 1. Lower extremity edema. 2. Acute congestive heart failure. 3. Rheumatoid arthritis. 4. History of coronary artery disease. 5. Chronic obstructive pulmonary disease. PLAN: Cardiology and pulmonology have both been consulted. We will check an echocardiogram. Give Lovenox, SCDs, Pepcid. Check CT angiogram of the chest with PE protocol for elevated D-dimer. Other tests and procedures as warranted. TRANSINT:[id number] Voice Confirmation ID: [id number] DOCUMENT ID: [id number] HAWK SIMPSON MD at 1131 CC: [id number] DICTATION DATE: 08/10/17 1334 PLUG DRILL OPERATOR: 08/10/17 1421 ADM IN [facility] [address] [place] [address]
--- NOTE | ~2017-08-09 | CN ---
PATIENT NAME:DONTAE HARRIS MEDICAL RECORD: [id number] : 56 LOCATION:[facility] D.2116 ADMIT DATE: 08/09/17 ACCOUNT: [id number] CONSULTING PHYSICIAN: ROMÁN JOHNSON MD REFERRING PHYSICIAN: HAWK SIMPSON MD DATE OF CONSULTATION: 08/09/2017 DIAGNOSES: 1. Congestive heart failure, chronic systolic dysfunction. 2. Shortness of breath, dyspnea on exertion. 3. Angina. 4. Coronary artery disease. 5. Previous coronary bypass graft surgery. 6. Cardiomyopathy, ischemic. 7. Chronic obstructive pulmonary disease. HISTORY OF PRESENT ILLNESS: Ms. Harris presents with increasing shortness of breath, lower extremity swelling as well as increasing chest pain, chest discomfort compatible with angina. She has a history of coronary artery disease, status post coronary artery bypass graft surgery in 2002 in [place]. She has history of a cardiomyopathy, last ejection fraction within the 30% range. She has had increasing shortness of breath as well as increasing angina. PHYSICAL EXAMINATION: GENERAL APPEARANCE: Well-nourished, well-developed, appears stated age. Level of distress, comfortable. PSYCHIATRIC: Mental status, alert, normal affect. Orientation, oriented to time, place and person. EYES: Lids and conjunctiva, noninjected. No discharge, no pallor. ENT: Lips, teeth, gums, normal dentition. Oropharynx, no cyanosis, no pallor. NECK: Carotid arteries, bilateral normal upstroke, no bruits, no thrills. JUGULAR VEINS: No jugular venous pressure or distention. CERVICAL LYMPH NODES: Nontender, nonenlarged. THYROID: Not enlarged. Nontender. No nodules. LUNGS: Bibasilar crackles. CHEST: Normal curvature. No thoracic deformity. No chest wall tenderness. Percussion, resonant. Auscultation, clear. No wheezes, no rales, no rhonchi. CARDIOVASCULAR: Precordial exam, nondisplaced. No heaves or pericardial thrills. Rate and rhythm, regular. Heart sounds, normal S1, normal S2. No S3, no gallop, no rub. Systolic murmur, not heard. Diastolic murmur, not heard. EXTREMITIES: A +3 to +4 pitting edema. No cyanosis. Peripheral pulses, full and equal in all extremities, except as noted. No bruits appreciated. ABDOMEN: Soft, nondistended. Normal aorta. No bruit. Nontender. No masses. Liver, nontender, no hepatomegaly. Spleen, nontender, no splenomegaly. MUSCULOSKELETAL: No joint tenderness. No joint swelling. No erythema. NEUROLOGICAL: Normal gait, normal strength, normal tone. SKIN: Warm and dry. OVERALL IMPRESSION: 1. Decompensated congestive heart failure. At this time, we will start her on dobutamine as well as IV Lasix for diuresis. 2. Angina. Most likely, she has recurrent hemodynamically significant coronary artery disease and this is well is contributing to the heart failure and decompensation of the left ventricular systolic function. We will plan for CONSULT REPORT [id number] DONTAE HARRIS cardiac catheterization, but only after the heart failure is cleared. TRANSINT:[id number] Voice Confirmation ID: [id number] DOCUMENT ID: [id number] ROMÁN JOHNSON MD at 1351 CC: [id number] DICTATION DATE: 08/09/17 1217 BIBLE READER: 08/09/17 1235 ADM IN [place] [id number] [place] [id number]
--- NOTE | ~2017-08-09 | EC ---
PATIENT:DONTAE HARRIS DATE OF SERVICE: 08/09/17 SEX: F MEDICAL RECORD: [id number] DATE OF : 56 LOCATION:D. D.211 AGE OF PATIENT: 56 ADMISSION DATE: 08/09/17 REFERRING PHYSICIAN: INTERPRETING PHYSICIAN: ROMÁN SAMPSON MD ECHOCARDIOGRAM REPORT ECHO CHARGES 4 ECHO COMPLETE Date: 08/09 CLINICAL DIAGNOSIS: CHF ECHOCARDIOGRAPHIC MEASUREMENTS (adult normal given) AC root (d.<3.7cm) 3.2 cm LV Septum d (<1.2 cm> 1.2 cm Valve Excursion 1.9 cm LV Septum (systole) 1.4 cm Left Atria (s.<4.0cm> 3.7 cm LVPW d(<1.2cm) 1.4 cm RV (d.<2.3cm) 4.8 cm LVPW (sytole) 1.8 cm LV diastole(<5.6CM) 5.4 cm MV E-F(>70mm/sec) cm LV systole 3.3 cm LVOT Diameter 1.5 cm MV exc.(>10mm) 1.6 cm Est.ejection fraction (50-75%) % DOPPLER: LVIT cm/sec A 31.0 cm/sec E 97.0 cm/sec LA cm/sec RVSP 44 mmHg LVOT 57 cm/sec AOP1/2T m/s Asc. Ao 153 cm/sec RVOT 37 cm/sec RA cm/sec PA 62 cm/sec AV Gradient Peak 9.41 mmHg AV Mean 4.16 mmHg AV Area 1.7 cm MV Gradient Peak 4.30 mmHg MV Mean 1.19 mmHg MV Area cm COMMENTS: Interpreter: Sandra ROTH Creative Arts Therapist: 1 Dr. Sampson TAPE# PACS Pericardial Effusion N DATE OF SERVICE: 08/09/2017 PROCEDURE: Echocardiogram. FINDINGS: 1. Left ventricular chamber size is within normal limits. Left ventricular systolic function is reduced. Overall ejection fraction 25% to 30%. 2. Left atrium is within normal limits at 3.7 cm. Right atrium and right ventricle chamber sizes are mildly dilated. 3. Valvular structures have normal structure and motion. ECHOCARDIOGRAM REPORT [id number] DONTAE HARRIS 4. Doppler interrogation reveals [id number] mitral regurgitation, moderate tricuspid regurgitation, no other valvular insufficiency or stenosis. Pulmonary systolic pressure is estimated at 44 mmHg. 5. No evidence of pericardial effusion or left ventricular thrombus. TRANSINT:[id number] Voice Confirmation ID: [id number] DOCUMENT ID: [id number] ROMÁN SAMPSON MD at 1006 CC: [id number] DICTATION DATE: 08/09/17 1407 GOVERNMENT RELATIONS DIRECTOR: 08/09/17 1429 ADM IN [place] [id number] [place] [address]
--- NOTE | ~2017-08-09 | HEMODYNAMI ---
PATIENT:DONTAE HARRIS MEDICAL RECORD: [id number] : 56 LOCATION:[facility] [facility] [id number] ADMISSION DATE: 08/09/17 Generatedon:08/12/201716:13 Patient name: DONTAE HARRIS Patient #: [id number] SSN: DO B: 1960 Date of study: 08/12/2017 Page: Of Hemodynamic Procedure Report Patient Data Patient Demographics Procedure consent was obtained First Name: DONTAE Gender: Female Last Name: STEVEN : 1960 [facility] Initial: R Age: 56 year(s) Patient #: [id number] Race: Unknown Additional ID: [id number] Contact details [address]: [address] [place] [address] State: [place] City: [place] Zip code: [address] Admission Admission Data Admission Date: 08/09/2017 Admission Time: 11:17 Room #: D.2116 Lab Results Lab Result Date: 08/12/2017 Lab Result Time: 0:00 Biochemistry Name Units Result Min Max BUN mg/dl 22 --(----)-* 7 18 Creatinine mg/dl 1.1 --(--*-)-- 0.6 1.3 CBC Name Units Result Min Max Hemoglobin g/dl 10.2 *-(----)-- 13.5 17.5 Procedure Procedure Types Cath Procedure Diagnostic Procedure [facility] w/Coronaries w/Grafts FFR/IVUS Intra-Coronary IVUS Initial PCI Procedure AMI/SVG/DRAFTER COMMERCIAL PTCA or Stent SVG-BMS/YASIR Initial Procedure Description Procedure Date Procedure Date: 08/12/2017 Procedure Start Time: 15:50 Procedure End Time: 16:12 Procedure Staff Name Function Juma Sampson MD Performing Physician Bora Pate RT Monitor hSanna Zacarias RT Scrub Zoey Alejandra RN Nurse Procedure Data Cath Procedure Fluoroscopy Diagnostic fluoroscopy Total fluoroscopy Time: 3.5 time: 3.5 min min Diagnostic fluoroscopy Total fluoroscopy dose: 472 dose: 472 mGy mGy Contrast Material Contrast Material Type Amount (ml) Isovue 300 93 Entry Location Entry Primary Successful Side Size Upsize Upsize Entry Closure Succes sful Closure Location (Fr) 1 (Fr) 2 (Fr) Remarks Device Remarks Femoral Right 5 Fr 6 Fr Exoseal artery Short Estimated blood loss: 10 ml Diagnostic catheters Device Type Used For End Catheter Placement MULTIPACK Pigtail 5 Fr Procedure catheter MULTIPACK JL 4.0 5Fr Procedure catheter MULTIPACK 3DRC 5Fr Procedure catheter DIAGNOSTIC AR 2 MOD 5 Fr Procedure catheter ([id number]) Procedure Complications No complications Procedure Medications Medication Administration Route Dosage Oxygen NC 2 l/min Lidocaine 2% added to field 20 Heparin Flush Bag added to field 2 bags (1000units/500ml NS) 0.9% NaCl I.V. 100 ml/hr Phenergan 12.5 mg Benadryl I.V. 50 mg Versed I.V. 1 mg Fentanyl I.V. 25 mcg Heparin Bolus I.V. 4000 units Cardene I.C. 300 mcg Integrilin (Bolus I.V. 6.8 ml 2mg/ml) Plavix P.O. 600 mg Hemodynamics Rest HGB: 10.2 (g/dl) Heart Rate: 78 (bpm) Snapshots Pre Cath Intra NCS Post Cath Vital Signs Time Heart Resp SPO2 etCO2 NIBP (mmHg) Rhythm Pain Sedation Rate (ipm) (%) (mmHg) Status Level (bpm) 15:40:03 74 30 99 0 182/112(140) NSR 0 (11) 10(A) , No pain 15:44:52 73 21 99 0 173/116(137) NSR 0 (11) 10(A) , No pain 15:49:39 75 18 99 0 171/111(137) NSR 0 (11) 10(A) , No pain 15:54:26 75 16 99 0 180/102(141) NSR 0 (11) 9(A) , No pain 15:59:13 74 18 98 0 171/105(142) NSR 0 (11) 9(A) , No pain 16:03:58 78 15 99 0 145/86(120) NSR 0 (11) 9(A) , No pain 16:08:38 75 16 98 0 155/88(106) NSR 0 (11) 10(A) , No pain Medications Time Medication Route Dose Verified Delivered Reason Notes Effectiveness by by 15:28:05 Oxygen NC 2 Juma Copeie used for l/min Adrián Alejandra RN procedure 15:28:13 Lidocaine 2% added 20ml Juma Dennison for local to vial Adrián Sampson MD anesthetic field 15:28:19 Heparin Flush added 2 Juma Dennison used for Bag to bags Adrián Sampson MD procedure (1000units/500ml field NS) 15:28:28 0.9% NaCl I.V. 100 Juma Copeie Per physician ml/hr Adrián Alejandra RN 15:35:21 Phenergan IM to 12.5 Juma Copeie for nausea pt Left mg Adrián Alejandra RN states GM has been given zofran today with no relief of nausea. 15:38:35 Benadryl I.V. 50 mg Juma Greer used for from Adrián Alejandra RN procedure floor stock. 15:47:48 Versed I.V. 1 mg Juma Greer for sedation Adrián Alejandra RN 15:47:55 Fentanyl I.V. 25 Juma Greer for sedation mcg Adráin Alejandra RN 16:00:06 Heparin Bolus I.V. 4000 Juma Gerer for verifi ed units Adrián Alejandra RN anticoagulation with dr sampson 16:00:16 Cardene I.C. 300 Juma Dennison for mcg Adrián davis 16:03:38 Integrilin I.V. 6.8 Juma Greer for Wasted (Bolus 2mg/ml) ml Adrián Alejandra RN antiplatelet 3.2 ml therapy of vial 16:10:23 Plavix P.O. 600 Juma Greer for mg Adrián Alejandra RN antiplatelet therapy Procedure Log Time Note 14:55:31 Shanna Zacarias RT(R) sent for patient. Start room use. 15:06:32 Time tracking: Regular hours (M-F 7:00 - 5:00) 15:06:36 Plan of Care:Hemodynamics will remain stable., Cardiac rhythm will remain stable., Comfort level will be maintained., Respiratory function will remain adequate., Patient/ family verbilizes understanding of procedure., Procedure tolerated without complication., Recovers from procedure without complications.. 15:06:37 Signed procedure consent form obtained from patient. 15:06:52 H&P Date Dictated: 08/09/2017 Within 30 days and on chart.. 15:07:27 Lab Result : BUN 22 mg/dl 15:: Lab Result : Hemoglobin 10.2 g/dl 15:: Lab Result : Creatinine 1.1 mg/dl 15:20:12 Patient received from PCU to CCL 1 Alert and oriented. Tansferred to table in Supine position. 15:25:13 Warm blankets applied, and gosia hugger turned on for patient comfort. 15:25:14 Correct patient and procedure confirmed by team. 15:25:14 ECG and BP/O2 sat monitors applied to patient. 15:28:05 Oxygen 2 l/min NC was administered by Zoey Alejandra RN; used for procedure; 15:28:13 Lidocaine 2% 20ml vial added to field was administered by Juma Sampson MD; for local anesthetic; 15:28:19 Heparin Flush Bag (1000units/500ml NS) 2 bags added to field was administered by Juma Sampson MD; used for procedure; 15:28:28 0.9% NaCl 100 ml/hr I.V. was administered by Zoey Alejandra RN; Per physician; 15:35:21 Phenergan 12.5 mg IM to Left GM was administered by Zoey Alejandra RN; for nausea; pt states has been given zofran today with no relief of nausea. 15:38:35 Benadryl 50 mg I.V. was administered by Zoey Alejandra RN; used for procedure; from floor stock. 15:39:07 Baseline sample Acquired. 15:39:07 Vital chart was started 15:39:11 Rhythm: sinus rhythm 15:39:12 Full Disclosure recording started 15:39:13 Pre-procedure instructions explained to patient. 15:39:13 Pre-op teaching completed and patient verbalized understanding. 15:39:22 Family unavailable. 15:39:25 Patient NPO since Midnight. 15:39:27 Is the patient allergic to Iodine/contrast media? No. 15:39:30 Is patient on blood thinner?No 15:39:31 Patient diabetic? No. 15:39:34 Patient not . Patient is over age 55. 15:39:39 Previous problem with sedation/anesthesia? Yes Nausea 15:39:42 Snore? No 15:39:43 Sleep apnea? No 15:39:44 Deviated septum? No 15:39:45 Opens mouth fully? Yes 15:39:46 Sticks out tongue? Yes 15:40:26 Airway obstruction? Yes COPD 15:40:34 Dentures? Yes Upper partial IN 15:40:37 Pre procedure: right dorsailis pedis pulse 1+ Palpable, but thready & weak; easily obliterated 15:40:39 Patient pain scale 0/10 ?. 15:40:42 IV patent on arrival in left forearm with 0.9% NaCl at [facility]. 15:40:44 Lab results completed and on chart. 15:40:47 Right groin area was prepped with chlora-prep and draped in sterile fashion 15:40:49 Alarms reviewed by R. N. 15:40:49 Sharps counted by scrub and verified by R.N. 15:40:55 Use device set Femoral Dx 15:40:58 PERCUTANEOUS ENTRY 19GA needle opened to sterile field. 15:40:59 Tegaderm 4 x 4 (1626W) opened to sterile field. 15:41:00 ACIST Manifold (53699) opened to sterile field. 15:41:01 ACIST Hand Control (34529) opened to sterile field. 15:41:03 ACIST Syringe (87641) opened to sterile field. 15:41:03 Bag Decanter (2002S) opened to sterile field. 15:41:04 Medline Cath Pack ([id number]) opened to sterile field. 15:41:04 DIAGNOSTIC WIRE .035 260cm J wire (854429) opened to sterile field. 15:41:10 DIAGNOSTIC Multipack 5Fr catheter set (RM6229) opened to sterile field. 15:41:12 SHEATH Prelude 5Fr 0.035 (EXQ-0U-22-035) opened to sterile field. 15:46:43 --------ALL STOP TIME OUT------ 15:46:43 Final Timeout: patient, procedure, and site verified with staff and physician. All members of the team are in agreement. 15:46:45 Right groin site verified by team. 15:46:48 Physical assessment completed. ASA score P 2 - A patient with mild systemic disease as per Juma Sampson MD. 15:46:52 Sedation plan: IV Moderate Sedation Medication:Versed, Fentanyl 15:47:48 Versed 1 mg I.V. was administered by Zoey Alejandra RN; for sedation; 15:47:55 Fentanyl 25 mcg I.V. was administered by Zoey Alejandra RN; for sedation; 15:49:54 Procedure started. 15:50:06 Local anesthetic to right femoral artery with Lidocaine 2% by Juma Sampson MD.INITIAL ACCESS ONLY 15:51:28 A 5 Fr sheath was inserted into the Right Femoral artery 15:52:21 A MULTIPACK Pigtail 5 Fr catheter was advanced over the wire and used for Procedure. 15:52:26 LV angiography performed. 15:52:34 LV gram done using YOST 15:52:40 EF : 20 % 15:52:43 Injector settings: Ml/sec: 10, Volume: 20, 15:52:47 Catheter removed. 15:52:53 A MULTIPACK JL 4.0 5Fr catheter was advanced over the wire and used for Procedure. 15:53:22 LCA angiography performed. 15:53:55 Catheter removed. 15:54:02 A MULTIPACK 3DRC 5Fr catheter was advanced over the wire and used for Procedure. 15:54:11 Zero performed for pressure channel P1 15:54:13 Zero performed for pressure channel P1 15:54:16 Zero performed for pressure channel P1 15:54:19 Zero performed for pressure channel P1 15:54:26 Zero performed for pressure channel P1 15:55:00 SMITH to LAD angiography performed. 15:55:26 RCA occluded. 15:55:29 Catheter removed. 15:55:34 A DIAGNOSTIC AR 2 MOD 5 Fr catheter ([id number]) was advanced over the wire and used for Procedure. 15:55:38 Zero performed for pressure channel P1 15:55:41 Zero performed for pressure channel P1 15:56:56 SVG to RCA angiography performed. 15:57:08 SVG to Circ occluded. 15:57:18 Catheter removed. 15:57:23 Use device set MAURICIO PCI 15:57:25 SHEATH Prelude 6Fr 0.035 (GXF-4L-76-035) opened to sterile field. 15:57:29 INFLATOR Merit BasixCompak (HB6379) opened to sterile field. 15:57:34 CHOICE PT Extra Support 182cm wire ([id number]) opened to sterile field. 15:57:36 GUIDE 6FR AR 2.0 catheter (BY4HS16) opened to sterile field. 15:57:42 [place] Mcdonald Eagleye IVUS Catheter (77891H) opened to sterile field. 15:59:22 Sheath upsized to a 6 Fr Short. 15:59:31 6 Fr AR 2 guide catheter was inserted over the wire 15:59:59 Choice PT XS wire advanced. 16:00:06 Heparin Bolus 4000 units I.V. was administered by Zoey Alejandra RN; for anticoagulation; verified with dr sampson 16:00:08 Wire advanced across lesion. 16:00:16 Cardene 300 mcg I.C. was administered by Juma Sampson MD; for vasodilation; 16:00:21 IVUS catheter advanced over wire. 16:01:20 IVUS pass to SVG to RCA lesion performed. 16:02:40 IVUS catheter removed over wire. 16:03:38 Integrilin (Bolus 2mg/ml) 6.8 ml I.V. was administered by Zoey Alejandra RN; for antiplatelet therapy; Wasted 3.2 ml of vial 16:05:00 Place stent Inflation Number: 1 A INTEGRITY RX 3.5 x 22 stent ([id number]) was prepped and advanced across the Aorta Right -> Dist RCA. The stent was deployed at 17 GARRET for 0:10 (min:sec). 16:05:14 EXOSEAL 6Fr (EX600) opened to sterile field. 16:05:29 Stent catheter was removed intact over wire. 16:05:30 Wire removed. 16:05:31 Guide catheter removed. 16:05:40 Sheath removed intact; hemostasis achieved with Exoseal to the Right Femoral artery. 16:05:42 Procedure ended.(Physican Out) 16:07:18 Fluoroscopy time 03.50 minutes. 16:07:22 Fluoroscopy dose: 472 mGy 16:07:22 Flurop Dose total: 472 16:07:26 Contrast amount:Isovue 300 93ml. 16:09:49 Sharps counted by scrub and verified by R.N. 16:09:50 Insertion/operative site no bleeding no hematoma. 16:09:53 Post-op/insertion site Right Femoral artery dressed using a 4 x 4 and Tegaderm. 16:09:56 Post Procedure Pulses reassessed and unchanged 16::59 Post-procedure physical assessment completed. ASA score P 2 - A patient with mild systemic disease as per Juma Sampson MD. 16:10:02 Post procedure rhythm: unchanged. 16:10:05 Estimated blood loss: 10 ml 16:10:06 Post procedure instruction explained to patient.Patient verbalizes understanding. 16:10:07 Patient needs reinforcement of post procedure teaching. 16:10:23 Plavix 600 mg P.O. was administered by Zoey Alejandra RN; for antiplatelet therapy; 16:10:25 Procedure type changed to Cath procedure, Diagnostic procedure, LHC, LHC w/Coronaries w/Grafts, FFR/IVUS, Intra-Coronary IVUS Initial, PCI procedure, AMI/SVG/DRAFTER COMMERCIAL PTCA or Stent, SVG-BMS/YASIR Initial 16:10:27 Procedure and supply charges have been captured, reviewed, submitted and are correct. 16:10:30 Procedure Complication : No complications 16:12:23 Vital chart was stopped 16:12:23 See physician's report for complete and final results. 16:12:42 Report given to PCU. 16:12:45 Patient transfered to PCU with Bed. 16:12:48 Procedure ended. 16:12:48 Full Disclosure recording stopped 16:12:58 End room use (Document Last) Intervention Summary Intervention Notes Time ActionType Lesion and Equipment Action# Pressure Duration Attributes Used 16:05:00 Place stent Aorta Right INTEGRITY RX 1 17 00:10 -> Dist RCA 3.5 x 22 stent ([id number]) Device Usage Item Name Manufacture Quantity Catalog Number Hospital Part Current Minimal Lot# / Charge Number Stock Stock Serial# Code PERCUTANEOUS Cook Medical 1 [id number] [id number] 5 ENTRY 19GA needle Tegaderm 4 x 4 3M 1 1626W 907078 799109 128296 5 (1626W) ACIST Manifold Acist 1 18521 146437 032728 105964 5 (85118) Medical Systems Inc ACIST Hand Acist 1 78332 977392 726254 808436 5 Control (44738) Medical Systems Inc ACIST Syringe Acist 1 76687 384858 035119 953456 20 (15231) Medical Systems Inc Bag Decanter Microtek 1 2002S 784098 12256 008910 5 (2001S) Medical Inc. Medline Cath Cardinal 1 [id number] 211913 25566 016300 5 WellTrackOne ([id number]) DIAGNOSTIC WIRE St Marc 1 993096 730973 304353 973835 30 .035 260cm J wire (972382) DIAGNOSTIC Cardinal 1 VR8765 066158 41384 271862 30 Multipack 5Fr Health catheter set (KM3513) SHEATH Prelude Merit 1 PKD-8W-25-035 396117 370943 637623 5 5Fr 0.035 Medical (EVV-8G-34-035) MULTIPACK Cardinal 1 056184 5 Pigtail 5 Fr Health catheter MULTIPACK JL Cardinal 1 251873 5 4.0 5Fr Health catheter MULTIPACK 3DRC Cardinal 1 506799 5 5Fr catheter Health DIAGNOSTIC AR 2 Cardinal 1 [id number] 048465 261777 691156 20 MOD 5 Fr Health catheter (277858H) SHEATH Prelude Merit 1 QLM-8E-42-35 777726 4097640 972177 5 6Fr 0.035 Medical (DTG-9K-51-035) INFLATOR Merit Merit 1 XX3278 577948 223789 265723 15 VIVAMountain Point Medical CenterSmartCup Medical (GQ5397) CHOICE PT Extra [place] 1 [id number] 352436 727364 348972 5 Support 182cm Scientific wire ([id number]) GUIDE 6FR AR Medtronic 1 [id number] 984235 35509 051517 1 2.0 catheter ([id number]) [place] 1 92135M 510660 893094 670300 8 Mcdonald Eagleye IVUS Catheter (82752L) INTEGRITY RX Medtronic 1 [id number] 454709 750136 914878 5 [id number] 3.5 x 22 stent ([id number]) EXOSEAL 6Fr Cardinal 1 EX600 205043 665755 171438 10 (EX600) Health Signature Audit [place] Stage Time Signature Unsigned Intra-Procedure 08/12/2017 Bora Pate 4:13:11 PM RT(R) Signatures Monitor : Bora Pate RT Signature : Date : Time : [facility] [address] [place] [address]
--- NOTE | ~2017-08-09 | OP ---
PATIENT NAME: DONTAE HARRIS MEDICAL RECORD: [id number] :56 LOCATION:D.M2 D.2116 ADMISSION DATE:08/09/17 SURGEON: ROMÁN JOHNSON MD DATE OF OPERATION: 08/12/2017 PROCEDURES: 1. PTCA and stent, vein graft to RCA. 2. Intravascular ultrasound. 3. Vein graft angiography. 4. SMITH angiography. 5. Left heart catheterization. 6. Left ventriculogram. INDICATION: Angina, coronary disease. PROCEDURE PERFORMED: After informed consent was obtained with detailed description of risks and benefits as well as alternative therapies, the patient elected to proceed with angiogram and angioplasty. The right femoral area was prepped and draped in normal sterile fashion. The right femoral artery was cannulated via modified Seldinger technique with placement of 6-Samoan sheath. All catheters were exchanged through this sheath. FINDINGS: The left ventriculogram was performed in standard 30-degree YOST view, reveals global hypokinesis throughout all segments. Overall ejection fraction estimated at 20% to 25%. SELECTIVE CORONARY ANGIOGRAPHY: 1. Left main is with no significant angiographic disease. 2. Left anterior descending is totally occluded in mid vessel. 3. SMITH to LAD is widely patent. Distal LAD is widely patent. 4. Left circumflex is totally occluded. 5. Vein graft to circumflex is totally occluded. 6. Right coronary is totally occluded. 7. Vein graft to right coronary is patent; however, there is 80% stenosis in the proximal shaft, confirmed by intravascular ultrasound. PTCA AND STENT OF RCA: The stent used was a 3.5 x 22-mm Integrity. Result was 0% residual stenosis. OVERALL IMPRESSION: Successful PTCA and stent of the right coronary vein graft going from 80% initial stenosis to 0% residual. TRANSINT:[id number] Voice Confirmation ID: [id number] DOCUMENT ID: [id number] ROMÁN JOHNSON MD at 1006 CC: [id number] DICTATION DATE: 08/12/17 1616 SHIP RIGGER APPRENTICE: 08/12/17 1751 ADM IN [place] [id number] [place] [address]
[2017-08-09] MEDS ORDERED: PREDNISONE5 MG PO (11:51)
[2017-08-09] MEDS ORDERED: FUROSEMIDE40 MG PO (11:52)
[2017-08-09 11:58] VITALS: BP 115/59; BMI 30.6
[2017-08-09 12:31] LABS: BASOPHILS 0.2 % (0-2); EOSINOPHILS 0.2 % (0-7); HEMATOCRIT 35.7 % (36.0-48.0); HEMOGLOBIN 10.5 g/dL (12-16); IMMATURE GRANULOCYTES 0.2 % (0-5); LYMPHOCYTES 7.9 % (15-50); MCH 20.8 pg (26.0-34.0); MCHC 29.4 g/dL (31.0-37.0); MCV 70.6 fL (80.0-100.0); MONOCYTES 7.9 % (2-11); NEUTROPHILS 83.6 % (40-80); PLATELET COUNT 249 10x3/uL (130-400); RBC 5.06 10x6/uL (4.00-5.40); RDW 20.3 % (11.5-14.5); WBC 6.5 10x3/uL (4.8-10.8)
[2017-08-09 12:53] LABS: ALBUMIN 2.7 g/dL (3.4-5.0); ANION GAP 10.1 mmol/L (8-16); BILIRUBIN - TOTAL 1.48 mg/dL (0.2-1.3); CARBON DIOXIDE 31.4 mmol/L (21.0-32.0); CREATININE - SERUM 1.3 mg/dL (0.6-1.3); POTASSIUM - SERUM 4.5 mmol/L (3.5-5.1); PROTEIN - SERUM 5.8 g/dL (6.4-8.2)
[2017-08-09 13:00] LABS: TROPONIN-I 0.017 ng/mL (0.000-0.060)
[2017-08-09 15:24] VITALS: BP 133/58
[2017-08-09 19:34] VITALS: BP 128/67
[2017-08-09 23:07] LABS: % SATURATION 3 % (15-55); IRON 13 ug/dl (35-150); TOTAL IRON BIND CAPACITY 337 ug/dl (260-445); UNSAT IRON BIND CAPACITY 324 ug/dl (150-375)
[2017-08-10] VITALS: BP 138/66
[2017-08-10 05:04] LABS: BASOPHILS 0.3 % (0-2); EOSINOPHILS 1.5 % (0-7); HEMOGLOBIN 10.4 g/dL (12-16); IMMATURE GRANULOCYTES 0.1 % (0-5); LYMPHOCYTES 14.4 % (15-50); MCH 20.6 pg (26.0-34.0); MCHC 28.9 g/dL (31.0-37.0); MCV 71.3 fL (80.0-100.0); MEAN PLATELET VOLUME 9.8 fL (7.4-10.4); MONOCYTES 10.1 % (2-11); NEUTROPHILS 73.6 % (40-80); PLATELET COUNT 243 10x3/uL (130-400); RBC 5.05 10x6/uL (4.00-5.40); RDW 20.5 % (11.5-14.5); WBC 6.9 10x3/uL (4.8-10.8)
[2017-08-10 05:19] LABS: ANION GAP 7.8 mmol/L (8-16); CALCIUM 8.7 mg/dL (8.5-10.1); CARBON DIOXIDE 32.9 mmol/L (21.0-32.0); CREATININE - SERUM 1.4 mg/dL (0.6-1.3); MAGNESIUM - SERUM 1.9 mg/dL (1.8-2.4); PHOSPHOROUS 3.2 mg/dL (2.5-4.9)
[2017-08-10 05:25] VITALS: BP 149/81
[2017-08-10 05:25] LABS: POTASSIUM - SERUM 3.7 mmol/L (3.5-5.1)
[2017-08-10 10:04] VITALS: Ht 154.9 cm; Wt 62.8 kg
[2017-08-10 10:05] VITALS: BP 138/66
[2017-08-10 13:21] VITALS: BP 133/79
[2017-08-10 16:58] VITALS: BP 165/99
[2017-08-10 20:00] VITALS: BP 138/94
[2017-08-11 02:30] VITALS: BP 168/138
[2017-08-11 05:00] VITALS: BP 175/91
[2017-08-11 05:20] LABS: BASOPHILS 0.4 % (0-2); EOSINOPHILS 2.1 % (0-7); HEMOGLOBIN 10.3 g/dL (12-16); IMMATURE GRANULOCYTES 0.6 % (0-5); LYMPHOCYTES 17.7 % (15-50); MCH 20.4 pg (26.0-34.0); MCHC 28.6 g/dL (31.0-37.0); MCV 71.1 fL (80.0-100.0); MEAN PLATELET VOLUME 9.8 fL (7.4-10.4); MONOCYTES 11.6 % (2-11); NEUTROPHILS 67.6 % (40-80); PLATELET COUNT 240 10x3/uL (130-400); RBC 5.06 10x6/uL (4.00-5.40); RDW 19.9 % (11.5-14.5); WBC 7.1 10x3/uL (4.8-10.8)
[2017-08-11 05:25] LABS: ANION GAP 10.6 mmol/L (8-16); CALCIUM 8.8 mg/dL (8.5-10.1); CARBON DIOXIDE 33.9 mmol/L (21.0-32.0); CREATININE - SERUM 1.4 mg/dL (0.6-1.3); POTASSIUM - SERUM 3.5 mmol/L (3.5-5.1)
[2017-08-11 09:07] VITALS: BP 171/89
[2017-08-11 12:51] VITALS: BP 147/78
[2017-08-11 16:41] VITALS: BP 154/82
[2017-08-11 21:57] VITALS: BP 161/87
[2017-08-12 01:08] VITALS: BP 169/91
[2017-08-12 05:19] LABS: BASOPHILS 0.3 % (0-2); EOSINOPHILS 2.2 % (0-7); HEMATOCRIT 35.5 % (36.0-48.0); HEMOGLOBIN 10.2 g/dL (12-16); IMMATURE GRANULOCYTES 0.4 % (0-5); LYMPHOCYTES 21.3 % (15-50); MCH 20.4 pg (26.0-34.0); MCHC 28.7 g/dL (31.0-37.0); MCV 71.1 fL (80.0-100.0); MEAN PLATELET VOLUME 10.1 fL (7.4-10.4); MONOCYTES 11.3 % (2-11); NEUTROPHILS 64.5 % (40-80); PLATELET COUNT 240 10x3/uL (130-400); RBC 4.99 10x6/uL (4.00-5.40); RDW 20.4 % (11.5-14.5); WBC 6.8 10x3/uL (4.8-10.8)
[2017-08-12 05:37] LABS: CALCIUM 8.6 mg/dL (8.5-10.1); CARBON DIOXIDE 36.7 mmol/L (21.0-32.0); CREATININE - SERUM 1.1 mg/dL (0.6-1.3)
[2017-08-12 05:39] LABS: POTASSIUM - SERUM 2.7 mmol/L (3.5-5.1)
[2017-08-12 05:54] VITALS: BP 179/93
[2017-08-12 09:38] VITALS: BP 171/91
[2017-08-12 11:24] VITALS: BP 154/89
[2017-08-12 19:00] VITALS: BP 174/90
[2017-08-13] VITALS: BP 142/72
[2017-08-13 04:00] VITALS: BP 155/72
[2017-08-13 05:32] LABS: BASOPHILS 0.5 % (0-2); EOSINOPHILS 2.3 % (0-7); HEMATOCRIT 34.2 % (36.0-48.0); HEMOGLOBIN 9.6 g/dL (12-16); IMMATURE GRANULOCYTES 0.3 % (0-5); LYMPHOCYTES 22.7 % (15-50); MCH 20.1 pg (26.0-34.0); MCHC 28.1 g/dL (31.0-37.0); MCV 71.7 fL (80.0-100.0); MEAN PLATELET VOLUME 9.9 fL (7.4-10.4); MONOCYTES 10.2 % (2-11); PLATELET COUNT 245 10x3/uL (130-400); RBC 4.77 10x6/uL (4.00-5.40); WBC 6.5 10x3/uL (4.8-10.8)
[2017-08-13 05:47] LABS: ANION GAP 9.3 mmol/L (8-16); CALCIUM 8.5 mg/dL (8.5-10.1); CARBON DIOXIDE 37.6 mmol/L (21.0-32.0)
[2017-08-13 05:56] LABS: POTASSIUM - SERUM 2.9 mmol/L (3.5-5.1)
[2017-08-13 10:29] VITALS: BP 141/73
[2017-08-13 11:42] VITALS: BP 125/44
[2017-08-13 15:46] VITALS: BP 137/76
[2017-08-13 20:00] VITALS: BP 122/63
[2017-08-14] VITALS: BP 130/67
[2017-08-14 04:00] VITALS: BP 133/58
[2017-08-14 06:14] LABS: EOSINOPHILS 2.2 % (0-7); HEMATOCRIT 34.5 % (36.0-48.0); HEMOGLOBIN 9.6 g/dL (12-16); IMMATURE GRANULOCYTES 0.4 % (0-5); LYMPHOCYTES 25.9 % (15-50); MCH 20.1 pg (26.0-34.0); MCHC 27.8 g/dL (31.0-37.0); MCV 72.2 fL (80.0-100.0); MONOCYTES 11.1 % (2-11); NEUTROPHILS 59.4 % (40-80); PLATELET COUNT 242 10x3/uL (130-400); RBC 4.78 10x6/uL (4.00-5.40); RDW 20.5 % (11.5-14.5); WBC 7.8 10x3/uL (4.8-10.8)
[2017-08-14 06:42] LABS: ANION GAP 11.2 mmol/L (8-16); CALCIUM 9.2 mg/dL (8.5-10.1); CARBON DIOXIDE 33.9 mmol/L (21.0-32.0); CREATININE - SERUM 1.1 mg/dL (0.6-1.3); POTASSIUM - SERUM 4.1 mmol/L (3.5-5.1)
[2017-08-14 09:10] VITALS: BP 134/59
[2017-08-14 12:00] VITALS: BP 142/63
[2017-08-14 16:37] VITALS: BP 117/56
[2017-08-14 19:00] VITALS: BP 137/74
[2017-08-15 04:00] VITALS: BP 148/72
[2017-08-15 05:40] LABS: BASOPHILS 0.4 % (0-2); EOSINOPHILS 2.4 % (0-7); HEMATOCRIT 33.4 % (36.0-48.0); HEMOGLOBIN 9.5 g/dL (12-16); IMMATURE GRANULOCYTES 0.4 % (0-5); LYMPHOCYTES 22.1 % (15-50); MCH 20.1 pg (26.0-34.0); MCHC 28.4 g/dL (31.0-37.0); MCV 70.8 fL (80.0-100.0); MEAN PLATELET VOLUME 10.1 fL (7.4-10.4); MONOCYTES 11.8 % (2-11); NEUTROPHILS 62.9 % (40-80); PLATELET COUNT 224 10x3/uL (130-400); RBC 4.72 10x6/uL (4.00-5.40); RDW 20.1 % (11.5-14.5)
[2017-08-15 05:59] LABS: ANION GAP 9.5 mmol/L (8-16); CALCIUM 9.2 mg/dL (8.5-10.1); CARBON DIOXIDE 34.2 mmol/L (21.0-32.0); CREATININE - SERUM 1.3 mg/dL (0.6-1.3); POTASSIUM - SERUM 3.7 mmol/L (3.5-5.1)
[2017-08-15 08:44] VITALS: BP 133/55
[2017-08-15] MEDS ORDERED: ELIQUIS5 MG PO (09:15)
[2017-08-15] MEDS ORDERED: PLAVIX75 MG PO (09:15)
[2017-08-15] MEDS ORDERED: ENTRESTO 24 MG1 EACH PO (09:16)
[2017-08-15] MEDS ORDERED: COREG6.25 MG PO (09:16)
[2017-08-15] MEDS ORDERED: DOXYCYCLINE HY100 M2 PO (09:17)
[2017-08-15] MEDS ORDERED: BUMEX2 MG PO (09:18)
[2017-08-15] MEDS ORDERED: FERROUS SULFAT325 MG PO (09:18)
== END 2017-08-15 11:55 | disposition home or self-care (01) | DRG 248 ==
LOC: D.M2 11:13 → D.SDCHOLD 14:45 → D.M2 08-15 11:55
PROVIDERS: Family Medicine; Internal Medicine Interventional Cardiology; Internal Medicine Pulmonary Disease
PROC: 4A023N7 Measurement of Cardiac Sampling and Pressure, Left Heart, Percutaneous Approach (ICD-10-PCS; 2017-08-12)
PROC: B2121ZZ Fluoroscopy of Single Coronary Artery Bypass Graft using Low Osmolar Contrast (ICD-10-PCS; 2017-08-12)
PROC: B2181ZZ Fluoroscopy of Left Internal Mammary Bypass Graft using Low Osmolar Contrast (ICD-10-PCS; 2017-08-12)
PROC: 02703DZ Dilation of Coronary Artery, One Artery with Intraluminal Device, Percutaneous Approach (ICD-10-PCS; principal; 2017-08-12 11:30)
PROC: B240ZZ3 Ultrasonography of Single Coronary Artery, Intravascular (ICD-10-PCS; 2017-08-12 11:30)
DX: I11.0 Hypertensive heart disease with heart failure (principal); I26.99 Other pulmonary embolism without acute cor pulmonale; J18.9 Pneumonia, unspecified organism; J44.0 Chronic obstructive pulmonary disease with (acute) lower respiratory infection; I25.119 Atherosclerotic heart disease of native coronary artery with unspecified angina pectoris; I50.23 Acute on chronic systolic (congestive) heart failure; I25.5 Ischemic cardiomyopathy; D50.9 Iron deficiency anemia, unspecified; I48.91 Unspecified atrial fibrillation; M06.9 Rheumatoid arthritis, unspecified; I08.1 Rheumatic disorders of both mitral and tricuspid valves; K21.9 Gastro-esophageal reflux disease without esophagitis; E88.09 Other disorders of plasma-protein metabolism, not elsewhere classified; I27.20 Pulmonary hypertension, unspecified; Z95.1 Presence of aortocoronary bypass graft; I25.2 Old myocardial infarction; Z87.891 Personal history of nicotine dependence